=== PATIENT | male | born 1950 ===

== ENCOUNTER 2024-05-30 12:04 | Inpatient (IN) | payer OTHER ==
[~2024-05-30] VITALS: Ht 172.7 cm; Wt 86.2 kg
[2024-05-30] MEDS ORDERED: METFORMIN HCL500 M3 PO (12:58)
[2024-05-30] MEDS ORDERED: ATORVASTATIN CA10 MG PO (12:58)
[2024-05-30] MEDS ORDERED: IRBESARTAN-HCT1 EACH PO (12:58)
[2024-05-30] MEDS ORDERED: AMLODIPINE BESYL5 MG PO (12:58)
[2024-05-30] MEDS ORDERED: CENTRUM ADULTS1 EACH PO (12:59)
[2024-06-09] MEDS ORDERED: DEXTROSE 50 % IN WATER 0.5 G/ML DISP.SYRIN IV PRN ×2 (16:30→18:00)
[2024-06-09] MEDS ORDERED: RINGERS SOLUTION,LACTATED 1,000 ML IV SCH (16:30)
[2024-06-09] MEDS ORDERED: OxyCODONE HCL 5 MG TABLET (ROXICODONE) PO PRN (16:30)
[2024-06-09] MEDS ORDERED: MORPHINE SULFATE 4 MG/ML CARTRIDGE IV PRN (16:30)
[2024-06-09] MEDS ORDERED: ONDANSETRON HCL 2 MG/ML VIAL IV PRN (16:30)
[2024-06-09] MEDS ORDERED: HYOSCYAMINE SULFATE 0.125 MG TAB.SUBL SL SCH (17:00)
[2024-06-09] MEDS ORDERED: POLYETHYLENE GLYCOL 3350 17 GM BLIST.PACK PO SCH (17:00)
[2024-06-09] MEDS ORDERED: GABAPENTIN 300 MG CAPSULE PO SCH (17:00)
[2024-06-09] MEDS ORDERED: BUPIVACAINE HCL 30 ML VIAL IJ ONE (17:15)
[2024-06-09] MEDS ORDERED: CEFTRIAXONE SODIUM 2,000 MG VIAL IV ONE (17:15)
[2024-06-09] MEDS ORDERED: METRONIDAZOLE/SODIUM CHLORIDE 500 MG/100 ML PIGGYBACK IV ONE (17:15)
[2024-06-09] MEDS ORDERED: LIDOCAINE HCL 1%/EPINEPHRINE 20ML VIAL IJ ONE (17:30)
[2024-06-09] MEDS ORDERED: SUGAMMADEX SODIUM 200 MG/2 ML VIAL IV ONE (17:30)
[2024-06-09] MEDS ORDERED: ENALAPRILAT DIHYDRATE 1.25 MG/ML VIAL IV PRN (18:00)
[2024-06-09] MEDS ORDERED: INSULIN LISPRO 1,000 UNIT/10 ML UNITS SUBCUTANEO PRN (18:00)
[2024-06-09] MEDS ORDERED: MORPHINE SULFATE 4 MG/ML VIAL IV ONE (18:20)
[2024-06-09 19:33] LABS: HEMATOCRIT 41.8 % (39.0-48.0); HEMOGLOBIN 14.7 g/dL (13-16.00); MEAN CELL VOLUME 84.4 fL (80.0-100.00); MEAN CORPUSCULAR HEMOGLOBIN 29.7 pg (27.00-32.0); MEAN CORPUSCULAR HGB CONC 35.2 g/dl (32.0-36.0); PLATELET COUNT 211 K/uL (150-450); RED BLOOD COUNT 4.95 M/uL (4.00-6.00); RED CELL DISTRIBUTION WIDTH 13.6 % (11.5-14.5)
[2024-06-09 19:47] LABS: ALBUMIN 3.3 gm/dL (3.4-5.0); CALCIUM 8.8 mg/dL (8.5-10.1); CREATININE SERUM 0.72 mg/dL (0.70-1.30); GFR 107.61; MAGNESIUM 1.9 mg/dL (1.8-2.4); PHOSPHOROUS 3.4 mg/dL (2.5-4.9); POTASSIUM 3.06 mEq/L (3.5-5.1)
[2024-06-09] MEDS ORDERED: ACETAMINOPHEN 500 MG GEL..CAP PO SCH (20:00)
[2024-06-09] MEDS ORDERED: FAMOTIDINE/PF 20 MG/2 ML VIAL IV PUSH SCH (21:00)
[2024-06-09] MEDS ORDERED: AMLODIPINE BESYLATE 5 MG TABLET PO SCH (21:00)
[2024-06-10] VITALS: BP 176/81; O2SAT 98
[2024-06-10 08:00] VITALS: BP 139/75; O2SAT 97
[2024-06-10 08:28] LABS: HEMATOCRIT 41.1 % (39.0-48.0); HEMOGLOBIN 14.1 g/dL (13-16.00); MEAN CELL VOLUME 85.4 fL (80.0-100.00); MEAN CORPUSCULAR HEMOGLOBIN 29.3 pg (27.00-32.0); MEAN CORPUSCULAR HGB CONC 34.3 g/dl (32.0-36.0); PLATELET COUNT 184 K/uL (150-450); RED BLOOD COUNT 4.82 M/uL (4.00-6.00); RED CELL DISTRIBUTION WIDTH 13.5 % (11.5-14.5)
[2024-06-10 08:57] LABS: CALCIUM 8.4 mg/dL (8.5-10.1); CREATININE SERUM 0.59 mg/dL (0.70-1.30); GFR 135.41; MAGNESIUM 1.8 mg/dL (1.8-2.4); PHOSPHOROUS 3.4 mg/dL (2.5-4.9); POTASSIUM 3.71 mEq/L (3.5-5.1)
[2024-06-10] MEDS ORDERED: HYDROCHLOROTHIAZIDE 12.5 MG CAPSULE PO SCH (09:00)
[2024-06-10] MEDS ORDERED: IRBESARTAN 150 MG TABLET PO SCH (09:00)
[2024-06-10 16:43] VITALS: BP 194/85; O2SAT 96
[2024-06-10] MEDS ORDERED: ENOXAPARIN SODIUM 40 MG/0.4 ML SYRINGE SUBCUTANEO SCH (17:00)
[2024-06-10] MEDS ORDERED: ATORVASTATIN CALCIUM 10 MG TABLET PO SCH (17:00)
[2024-06-11] VITALS: BP 168/85; O2SAT 95
[2024-06-11 07:27] LABS: CALCIUM 8.5 mg/dL (8.5-10.1); CREATININE SERUM 0.67 mg/dL (0.70-1.30); GFR 116.93; MAGNESIUM 2.1 mg/dL (1.8-2.4); PHOSPHOROUS 2.4 mg/dL (2.5-4.9); POTASSIUM 3.7 mEq/L (3.5-5.1)
[2024-06-11 07:45] LABS: HEMATOCRIT 39.7 % (39.0-48.0); HEMOGLOBIN 13.6 g/dL (13-16.00); MEAN CELL VOLUME 86.3 fL (80.0-100.00); MEAN CORPUSCULAR HEMOGLOBIN 29.4 pg (27.00-32.0); MEAN CORPUSCULAR HGB CONC 34.1 g/dl (32.0-36.0); PLATELET COUNT 186 K/uL (150-450); RED CELL DISTRIBUTION WIDTH 13.7 % (11.5-14.5)
[2024-06-11 08:00] VITALS: BP 147/73; O2SAT 97
[2024-06-11] MEDS ORDERED: ENOXAPARIN SODIUM 40 MG/0.4 ML SYRINGE SUBCUTANEO SCH (09:00)
[2024-06-11] MEDS ORDERED: POTASSIUM PHOS,M-BASIC-D-BASIC 3 MM/ML VIAL IV NR (09:45)
== END 2024-06-11 15:36 | disposition home or self-care (01) | DRG 330 ==
LOC: SURH 06-06 07:00 → O/R 06-09 10:00 → SURH 06-09 10:00 → SURG 06-09 17:15 → SURH 06-09 17:16
PROVIDERS: Internal Medicine Geriatric Medicine; ADMIT Surgery; ATTEND Surgery
PROC: 0DBP4ZZ Excision of Rectum, Percutaneous Endoscopic Approach (ICD-10-PCS; 2024-06-09)
PROC: 07BC4ZZ Excision of Pelvis Lymphatic, Percutaneous Endoscopic Approach (ICD-10-PCS; 2024-06-09)
PROC: 0DJD8ZZ Inspection of Lower Intestinal Tract, Via Natural or Artificial Opening Endoscopic (ICD-10-PCS; 2024-06-09)
PROC: 0DTN4ZZ Resection of Sigmoid Colon, Percutaneous Endoscopic Approach (ICD-10-PCS; principal; 2024-06-09 16:15)
DX: C18.7 Malignant neoplasm of sigmoid colon (principal); K92.1 Melena; R59.0 Localized enlarged lymph nodes; I11.9 Hypertensive heart disease without heart failure